=== PATIENT | male | born 1995 | race Caucasian/White ===

== ENCOUNTER 2017-04-10 09:09 | Emergency (ER) | payer OTHER, MEDICAID ==
[~2017-04-10] VITALS: Ht 188 cm; Wt 61.2 kg
[2017-04-10] MEDS ORDERED: LAMOTRIGINE (09:18)
[2017-04-10] MEDS ORDERED: PROZAC PO (09:18)
--- NOTE | 2017-04-10 09:45 | NUR ---
PT REFUSED BLOOD DRAW, NOTIFIED
--- NOTE | 2017-04-10 10:32 | NUR ---
Patient discharged to home in stable conditon. Written and verbal after care instructions given. Patient verbalizes understanding of instructions.PT WALKS IN STEADY GAIT. PT ACCMPANIED BY CAREGIVER.PT DENEIS ANY DIZZINESS, HEADACHE AT THIS POINT
[2017-04-10 10:34] VITALS: BP 141/79
== END 2017-04-10 10:35 | disposition home or self-care (01) ==
LOC: ER 09:09
DX: I10 Essential (primary) hypertension (principal); F15.90 Other stimulant use, unspecified, uncomplicated
CPT/HCPCS: 93005; 99283; A4663